=== PATIENT | male | born 1960 | race Caucasian/White ===

== ENCOUNTER → 2016-11-23 | Outpatient (CLI) | payer BC | END | disposition home or self-care (01) | LOC: PCVCIMAG 15:35 | PROVIDERS: ATTEND Internal Medicine Cardiovascular Disease | DX: I10 Essential (primary) hypertension (principal); R94.31 Abnormal electrocardiogram [ECG] [EKG]; Z82.49 Family history of ischemic heart disease and other diseases of the circulatory system | CPT/HCPCS: 93325; 93351 ==

== ENCOUNTER → 2017-11-19 | Outpatient (CLI) | payer BC | END | disposition home or self-care (01) | LOC: PCVCIMAG 13:49 | DX: I26.99 Other pulmonary embolism without acute cor pulmonale (principal); I10 Essential (primary) hypertension; I47.1 Supraventricular tachycardia; K21.9 Gastro-esophageal reflux disease without esophagitis; R94.31 Abnormal electrocardiogram [ECG] [EKG]; Z86.711 Personal history of pulmonary embolism; Z82.49 Family history of ischemic heart disease and other diseases of the circulatory system; Z87.891 Personal history of nicotine dependence; Z79.899 Other long term (current) drug therapy; Z88.0 Allergy status to penicillin | CPT/HCPCS: 80061; 93005; 93308 ==

== ENCOUNTER → 2017-12-31 | Outpatient (CLI) | payer BC ==
[~2017-12-31] MED LIST: DIAZEPAM 10 MG TABLET.; IOHEXOL 300 MG/ML 100ML VIAL.; IOHEXOL 300 MG/ML 50 ML VIAL.; IV NORMAL SALINE 500ML BAG 500 ML; LIDOCAINE 1% Multi-Dose 50 ML VIAL.; MIDAZOLAM HCL/PF 2 MG/2 ML VIAL.; WATER FOR INJECTION,STERILE 20 ML VIAL. IJ; ceFAZolin SODIUM 1 GM VIAL; fentaNYL PF VIAL 100 MCG/2 ML VIAL
== END | disposition home or self-care (01) ==
LOC: PCVCINTER 08:10
DX: Z45.2 Encounter for adjustment and management of vascular access device (principal); Z86.711 Personal history of pulmonary embolism
CPT/HCPCS: 37191; 76937; 99152; 99153; C1751; C1769; C1894; J0690; J1644; J2250; J3010; J7040; Q9967

== ENCOUNTER → 2018-02-11 | Outpatient (CLI) | payer BC ==
[~2018-02-11] MED LIST changes: -IOHEXOL 300 MG/ML 50 ML VIAL.; -WATER FOR INJECTION,STERILE 20 ML VIAL. IJ; -ceFAZolin SODIUM 1 GM VIAL
== END | disposition home or self-care (01) ==
LOC: PCVCINTER 07:20
DX: Z46.89 Encounter for fitting and adjustment of other specified devices (principal)
CPT/HCPCS: 37193; C1751; C1769; C1773; C1894; J1644; J2250; J3010; J7040; Q9967

== ENCOUNTER → 2018-08-27 | Outpatient (CLI) | payer BC ==
--- NOTE | 2018-08-28 11:14 | PCVCIMAG ---
APPROVED REPORT Imaging Protocol: Rest Tc-99m/Stress Tc-99m 1 day Study performed: 08/27/2018 13:09:16 Indication: Chest pain Patient Location: Out-Patient Stress Nurse: Mandi Candelaria RN, Elsa Birch RN AL Tech:Ami Herreraelana [facility] Ht: 6 ft 8 in Wt: 280 lbs BSA: 2.65 m2 HR: 92 bpm BP: 132/96 mmHg BMI: 30.7 Rhythm: Normal Sinus Rhythm Medical History Medical History: HTN, Former Smoker Medications: Edarbi, Bystolic, ASA Allergies: PCN, Codeine, Latex Cardiac Risk Factors: Age, FHX of CAD Pretest Chest Pain Characteristics: No chest pain Exercise History: Physically active Physical Disabilities: Shoulder Meds Held (24 hrs): Bystolic Resting Data Rest SPECT myocardial perfusion imaging was performed in supine position 45 minutes following the intravenous injection of 10.4 mCi of Tc-99m Sestamibi. Time of rest injection: 1230 Date: 08/27/2018 Administration Route: IV Administration Site: Right Hand Pharmacologic Stress Pharmacologic stress test was performed by injecting Regadenoson 0.4 mg IV push over 10-15 seconds immediately followed by the intravenous injection of 34.2 mCi of Tc-99m Sestamibi. Time of stress injection: 1350 Date: 08/27/2018 Administration Route: IV Administration Site: Right Hand Gated Stress SPECT was performed 30 minutes after stress injection. The images were gated to evaluate regional wall motion and calculate left ventricular ejection fraction. Stress Test Details Stress Test: Exercise stress testing was performed using a Shravan protocol. HRMax Heart Rate (APMHR): 165 bpm Resting HR: 92 bpmTarget HR (85% APMHR): 140 bpm Max HR Achieved: 171 bpm % of APMHR: 103 Recovery HR: 105 bpm BP Resting BP: 132/96 mmHg Max BP: 190/84 mmHg Recovery BP: 149/79 mmHg ECG Resting ECG: Normal Sinus Rhythm Stress ECG: Sinus Tachycardia ST Change: Non-ischemic Maximum ST Deviation: 0.5 mm Arrhythmia: None Recovery ECG: Sinus Tachycardia Clinical Reason for Termination: Dyspnea Stress Symptoms: Dyspnea, Fatigue Exercise duration: 10 min 00 sec Exercise capacity: 13.4 METs Overall Exercise Capacity for Age: Normal Scale: Active Angina Score: None Symptoms resolved during recovery. Stress ECG Conclusion ECG: Non-ischemic Burns Treadmill Score is 7.5 which is Low risk. Study Quality Study: Good Study Data Post stress, the left ventricular ejection was 62%.. SSS: 0 SRS: 2 SDS: 0 TID = 0.80. Perfusion No evidence of stress induced ischemia or prior myocardial infarction. Wall Motion Normal left ventricular size and function with no regional wall motion abnormalities. Nuclear Conclusion No evidence of stress induced ischemia or prior myocardial infarction. Normal left ventricular size and function with no regional wall motion abnormalities. Post stress, the left ventricular ejection was 62%. No prior study available for comparison. Interpreted by: Reyes Saldana MD Electronically Approved: 08/27/2018 22:31:58 <Conclusion> ECG: Non-ischemic
== END | disposition home or self-care (01) ==
LOC: PCVCIMAG 12:27
PROVIDERS: ATTEND Internal Medicine Cardiovascular Disease
DX: R07.9 Chest pain, unspecified (principal); I10 Essential (primary) hypertension; E66.9 Obesity, unspecified; Z87.891 Personal history of nicotine dependence
CPT/HCPCS: 78452; 93017; A9500